=== PATIENT | female | born 1990 | race Two or more races ===

== ENCOUNTER 2018-10-27 20:06 | Emergency (ER) | payer MEDICAID ==
[~2018-10-27] VITALS: Ht 152.4 cm; Wt 59.0 kg
[2018-10-27] MEDS ORDERED: NKM (20:38)
[2018-10-27 20:40] VITALS: BP 116/77
--- NOTE | 2018-10-27 20:40 | NUR ---
ED Nurse Note: pt came to ed c/o abd pain 05/24 accompanied with diarrhea 6x today per pt. pt denies vomiting
--- NOTE | 2018-10-27 21:19 | Emergency Room Report ---
History of Present Illness General Chief Complaint: Abdominal Pain Source: Patient Present Illness HPI Is a 28-year-old female with no past medical history. She presents with chief complaint of abdominal pain. Onset for last 2 day. Pain is sharp in nature. Localized to the mid right quadrant area. [place] nauseous but no vomiting. Has diarrhea. Today she has a rash on the left side and around her breast area. Not itching. Not painful. Denies any fever chills but did not take anything for this. No urinary complaint. Allergies: Coded Allergies: No Known Allergies (Unverified , 10/27/18) Patient History Past Medical History: see triage record, old chart reviewed Past Surgical History: none Pertinent Family History: none Social History: Denies: smoking Last Menstrual Period: february 2001 Now: No Immunizations: other Reviewed Nursing Documentation: PMH: Agreed; PSxH: Agreed Nursing Documentation-PMH Past Medical History: No Stated History Review of Systems Eye: Denies: eye pain, blurred vision ENT: Denies: ear pain, nose congestion, throat swelling Respiratory: Denies: cough, shortness of breath Cardiovascular: Denies: chest pain, palpitations Gastrointestinal: Reports: abdominal pain, nausea; Denies: diarrhea, vomiting Musculoskeletal: Denies: back pain, joint pain Skin: Reports: rash Neurological: Denies: headache, numbness Endocrine: Denies: increased thirst, increased urine Hematologic/Lymphatic: Denies: easy bruising All Other Systems: negative except mentioned in HPI Physical Exam Vital Signs Date Time Temp Pulse Resp B/P (MAP) Pulse Ox O2 Delivery O2 Flow Rate FiO2 10/27/18 20:34 98.1 84 16 116/77 98 Room Air vitals normal Sp02 EP Interpretation: reviewed, normal General Appearance: well appearing, no apparent distress, alert Head: normocephalic, atraumatic Eyes: bilateral eye PERRL, bilateral eye EOMI ENT: hearing grossly normal, normal pharynx Neck: full range of motion, supple, no meningismus Respiratory: chest non-tender, lungs clear, normal breath sounds Cardiovascular #1: regular rate, rhythm, no murmur Gastrointestinal: normal bowel sounds, no mass, no organomegaly, no bruit, non- distended, tenderness - Right epigastric and mid right quadrant Musculoskeletal: back normal, gait/station normal, normal range of motion Psychiatric: mood/affect normal Skin: warm/dry, rash - 2-3 cm papular rash to the left upper quadrant/flank area. She has small 1 cm macular rash underneath both breasts. Medical Decision Making Diagnostic Impression: Primary Impression: Cholelithiasis Qualified Codes: K80.20 - Calculus of gallbladder without cholecystitis without obstruction Additional Impressions: Tinea corporis UTI (urinary tract infection) Qualified Codes: N30.00 - Acute cystitis without hematuria ER Course History with abdominal pain. This is secondary to gallbladder. No evidence of cholecystitis or obstruction. Patient felt better now. We'll discharge home. CT/MRI/US Diagnostic Results CT/MRI/US Diagnostic Results : Imaging Test Ordered: CT abdomen and pelvis Impression read by radiologist. Gallstone. Appendix normal. Last Vital Signs Date Time Temp Pulse Resp B/P (MAP) Pulse Ox O2 Delivery O2 Flow Rate FiO2 10/27/18 20:34 98.1 84 16 116/77 98 Room Air Status: improved Disposition: HOME, SELF-CARE Condition: Stable Scripts Ibuprofen* (MOTRIN*) 600 Mg Tablet 600 MG ORAL THREE TIMES A DAY, #30 TAB 0 Refills Prov: Selvin Cortes MD 10/27/18 Hydrocodone/Acetaminophen 5-325* (HYDROCODONE/ACETAMINOPHEN 5-325*) 1 Each Tablet 1 TAB ORAL Q6H PRN for For Pain, #10 TAB 0 Refills Prov: Selvin Cortes MD 10/27/18 Trimethoprim/Sulfamethoxazole 160/800* (BACTRIM DS TABLET*) 1 Each Tablet 1 TAB ORAL Q12H, #14 TAB 0 Refills Prov: Selvin Cortes MD 10/27/18 Additional Instructions: Follow-up with your doctor in 7 days. Return if worse. Selvin Cortes MD Oct 27, 2018 21:19
[2018-10-27] MEDS ORDERED: Ketorolac 30mg Inj IV ONE (21:30)
[2018-10-27 21:48] LABS: APPEARANCE,URINE SLIGHTLY CLOUDY; BILIRUBIN, URINE NEGATIVE (NEGATIVE); COLOR,URINE PALE YELLOW; GLUCOSE, URINE (UA) NEGATIVE (NEGATIVE); KETONES,URINE NEGATIVE (NEGATIVE); LEUKOCYTE ESTERASE ,URINE 3+ (NEGATIVE); NITRITE,URINE NEGATIVE (NEGATIVE); PH,URINE 6.5 (4.5-8.0); PROTEIN,URINE NEGATIVE (NEGATIVE); UROBILINOGEN,URINE NORMAL MG/DL (0.0-1.0)
[2018-10-27 21:51] LABS: BASOPHILS % (AUTO) 0.9 % (0.0-2.0); EOSINOPHILS % (AUTO) 2.4 % (0.0-3.0); HEMATOCRIT 40.6 % (37.0-47.0); HEMOGLOBIN 13.4 G/DL (12.0-16.0); LYMPHOCYTES % (AUTO) 31.8 % (20.0-45.0); MEAN CORPUSCULAR VOLUME 88 FL (80-99); MONOCYTES % (AUTO) 10.6 % (1.0-10.0); NEUTROPHILS % (AUTO) 54.4 % (45.0-75.0); PLATELET COUNT 328 K/UL (150-450); RED BLOOD COUNT 4.62 M/UL (4.20-5.40); WHITE BLOOD COUNT 8.6 K/UL (4.8-10.8)
[2018-10-27 21:59] LABS: ANION GAP 4 mmol/L (5-15); BLOOD UREA NITROGEN 11 mg/dL (7-18); CALCIUM 8.9 MG/DL (8.5-10.1); CARBON DIOXIDE 29 MMOL/L (21-32); CHLORIDE 105 MMOL/L (98-107); CREATININE 0.6 MG/DL (0.55-1.30); POTASSIUM 3.5 MMOL/L (3.5-5.1); SODIUM 138 MMOL/L (136-145)
[2018-10-27 22:04] LABS: ALANINE AMINOTRANSFERASE 27 U/L (12-78); ALBUMIN 3.5 G/DL (3.4-5.0); ALBUMIN/GLOBULIN RATIO 0.9 (1.0-2.7); ALKALINE PHOSPHATASE 66 U/L (46-116); ASPARTATE AMINO TRANSFERASE 27 U/L (15-37); BILIRUBIN,TOTAL 0.2 MG/DL (0.2-1.0)
--- NOTE | 2018-10-27 22:52 | Diagnostic Imaging Report ---
EXAM: CT Abdomen and Pelvis Without Intravenous Contrast CLINICAL HISTORY: ABD PAIN TECHNIQUE: Axial computed tomography images of the abdomen and pelvis without intravenous contrast. CTDI is 14.36 mGy and DLP is 777.39 mGy-cm. One or more of the following dose reduction techniques were used: automated exposure control, adjustment of the mA and/or kV according to patient size, use of iterative reconstruction technique. COMPARISON: No relevant prior studies available. FINDINGS: No urolithiasis or hydronephrosis. No evidence for acute pancreatitis or other significant abnormality of the unenhanced solid viscera. Suspected ovarian follicles. No bowel obstruction. There are some mildly distended small bowel segments which may represent ileus and/or stasis. No perienteric inflammatory changes. The visualized appendix is unremarkable. No large calcified gallstones though suspect cholelithiasis. No infiltrate at lung bases. IMPRESSION: No acute process. No large calcified gallstones though suspect cholelithiasis Incidental findings, as discussed above.
[2018-10-27] MEDS ORDERED: IBUPROFEN600 MG ORAL (23:17)
[2018-10-27] MEDS ORDERED: BACTRIM DS TAB1 EAC1 ORAL (23:17)
[2018-10-27] MEDS ORDERED: HYDROCODON-ACE1 EA15 ORAL (23:17)
[2018-10-27 23:23] VITALS: BP 116/77
--- NOTE | 2018-10-27 23:24 | NUR ---
ER DISCHARGE NOTE: Patient is cleared to be discharged per ERMD, pt is aox4, on room air, with stable vital signs. pt was given dc and prescription instructions, pt was able to verbalize understanding, pt id band and iv site removed without complications. pt is able to ambulate with steady gait. pt took all belongings.
== END 2018-10-27 23:23 | disposition home or self-care (01) ==
LOC: EMR 21:12
DX: K80.20 Calculus of gallbladder without cholecystitis without obstruction (principal); B35.4 Tinea corporis; N39.0 Urinary tract infection, site not specified
CPT/HCPCS: 36415; 74176; 80053; 81003; 81025; 83690; 85025; 87086; 96374; 99284; J1885

== ENCOUNTER 2019-04-08 09:56 | Emergency (ER) | payer MEDICAID ==
[~2019-04-08] VITALS: Ht 160 cm; Wt 58.5 kg
[~2019-04-08 09:56] MED LIST: BACTRIM DS TAB1 EAC1 ORAL; HYDROCODON-ACE1 EA15 ORAL; IBUPROFEN600 MG ORAL; NKM
[2019-04-08 10:01] VITALS: BP 111/76
--- NOTE | 2019-04-08 10:10 | NUR ---
ED Nurse Note: Patient walked into ED c/o flu-like symptoms. patient reports she has been having productive coughs for about 1 week. patient c/o headache 02/21. patient's oral temp upon triage was 98.7F. patient is alert awake x4 ambulatory steady gait, breathing unlabored and even.
[2019-04-08] MEDS ORDERED: ALLERGY D-12 T1 EACH PO (10:21)
--- NOTE | 2019-04-08 10:21 | Emergency Room Report ---
History of Present Illness General Chief Complaint: Upper Respiratory Illness Source: Patient Present Illness HPI 28-year-old female history of breast patient presents with cough, congestion, subjective fever/chills x7 days, no known aggravating or alleviating factors, severity is mild, symptoms are constant, patient wants to know she can take anything that will cure this. Allergies: Coded Allergies: No Known Allergies (Unverified , 10/27/18) Patient History Past Medical History: see triage record Last Menstrual Period: 04/06/2019 Now: No : 1 Para: 1 Reviewed Nursing Documentation: PMH: Agreed; PSxH: Agreed Nursing Documentation-PMH Past Medical History: No Stated History Review of Systems All Other Systems: negative except mentioned in HPI Physical Exam Vital Signs Date Time Temp Pulse Resp B/P (MAP) Pulse Ox O2 Delivery O2 Flow Rate FiO2 04/08/19 10:01 98.8 94 18 111/76 (88) 94 Room Air Sp02 EP Interpretation: reviewed, normal General Appearance: well appearing, no apparent distress, alert Head: normocephalic, atraumatic Eyes: bilateral eye PERRL, bilateral eye EOMI ENT: uvula midline, moist mucus membranes, nasal congestion Neck: supple, thyroid normal, supple/symm/no masses Respiratory: lungs clear, no respiratory distress, no retraction, no accessory muscle use Cardiovascular #1: normal peripheral pulses, regular rate, rhythm, no edema, no gallop, no murmur Gastrointestinal: non tender, soft, no guarding, no rebound Musculoskeletal: normal inspection Neurologic: alert, oriented x3 Psychiatric: mood/affect normal Skin: no rash, warm/dry Medical Decision Making Diagnostic Impression: Primary Impression: Upper respiratory infection Qualified Codes: J06.9 - Acute upper respiratory infection, unspecified ER Course 28-year-old female presents with URI like symptoms x1 week will obtain x-ray to evaluate for pneumonia. Differential includes viral syndrome, URI, influenza Chest x-ray negative symptomatic care disposition home with return precautions Chest X-Ray Diagnostic Results Chest X-Ray Diagnostic Results : Chest X-Ray Ordered: Yes # of Views/Limited/Complete: 1 View Indication: Other - Cough Interpretation: no consolidation, no effusion, no pneumothorax, no acute cardiopulmonary disease Impression: No acute disease Electronically Signed by: Willian Flaherty MD Last Vital Signs Date Time Temp Pulse Resp B/P (MAP) Pulse Ox O2 Delivery O2 Flow Rate FiO2 04/08/19 10:01 98.8 94 18 111/76 (88) 94 Room Air Disposition: HOME, SELF-CARE Condition: Stable Scripts Cetirizine Hcl/Pseudoephedrine (ALLERGY D-12 TABLET) 1 Each Tab.er.12h 1 EACH PO Q12HR, #20 TAB Prov: Willian Flaherty MD 04/08/19 Referrals: [facility]dev Hern[facility]dez [facility] Departure Forms: Return to Work Return to Work Date: Apr 11, 2019 Patient Instructions: Upper Respiratory Infection, Adult Additional Instructions: The patient was provided with discharge instructions, notified to follow-up with a primary care doctor and or specialist in the next 24-48 hours, and to return to the ED if they have worsening of their symptoms. Please note that this report is being documented using DRAGON technology. This can lead to erroneous entry secondary to incorrect interpretation by the dictating instrument. Willian Flaherty MD Apr 08, 2019 10:21
[2019-04-08 10:35] VITALS: BP 111/76
--- NOTE | 2019-04-08 10:35 | NUR ---
ER DISCHARGE NOTE: Patient is cleared to be discharged per ERMD DR AVERY, pt is aox4, on room air, with stable vital signs. pt was given dc and prescription instructions, pt was able to verbalize understanding, pt id band removed without complications. pt is able to ambulate with steady gait. pt took all belongings.
--- NOTE | 2019-04-08 11:47 | Diagnostic Imaging Report ---
EXAM: XR Chest, 1 View CLINICAL HISTORY: COUGH TECHNIQUE: Frontal view of the chest. COMPARISON: None FINDINGS: Hardware: None. Lungs/pleura: Hazy opacities in the lower lungs is likely secondary to overlying soft tissue density. No focal consolidation. No pleural effusion or pneumothorax. Heart/mediastinum: Normal. No cardiomegaly. Soft tissues: Unremarkable. Bones: No acute fracture. Upper abdomen: Normal. IMPRESSION: No acute disease identified.
== END 2019-04-08 10:35 | disposition home or self-care (01) ==
LOC: EMR 10:00
DX: J06.9 Acute upper respiratory infection, unspecified (principal)
CPT/HCPCS: 71045; 81025; 99283

== ENCOUNTER 2020-09-12 00:03 | Emergency (ER) | payer MEDICAID ==
[~2020-09-12] VITALS: Ht 165.1 cm; Wt 63.5 kg
[~2020-09-12 00:03] MED LIST changes: +ALLERGY D-12 T1 EACH PO
[2020-09-12] MEDS ORDERED: Ketorolac 30mg Inj IV ONE (00:15)
--- NOTE | 2020-09-12 00:20 | NUR ---
ED Nurse Note: Pt comes into ED unaccompanied, c/o 10 left flank pain x 2 weeks. Pt states LMP 2 weeks ago.
--- NOTE | 2020-09-12 00:25 | NUR ---
ED Nurse Note: Blood and UA collected at bedside. IV inserted without issues into left AC Addendum: 09/12/20 at 0047 by FRANDY ED Nurse Note: Blood and UA collected at bedside and sent to lab. IV inserted without issues into left AC
--- NOTE | 2020-09-12 00:27 | Emergency Room Report ---
History of Present Illness General Chief Complaint: Abdominal Pain Source: Patient Present Illness HPI 30-year-old female with history of cholelithiasis here with left flank pain. Patient says that she has felt worsening left flank pain for the past 2 weeks. Has been taking Tylenol intermittently with only mild relief. Has never had this kind of pain before. Has vomited once several days ago nonbilious no nbloody. Pain is located in left lower quadrant and left flank. Does not radiate. No fevers, chills, chest pain, palpitation, shortness of breath, abdominal pain aside from previously mentioned, diarrhea, dysuria, hematuria. No surgical history. No drugs or alcohol. Allergies: Coded Allergies: No Known Allergies (Unverified , 10/27/18) COVID-19 Screening Contact w/high risk pt: No Experienced COVID-19 symptoms?: No COVID-19 Testing performed HOME WORKER: No COVID-19 Screening: Negative COVID-19 COVID-19 Testing Source: Mobile Patient History Now: No Nursing Documentation-[facility] Past Medical History: No Stated History Review of Systems All Other Systems: negative except mentioned in HPI Physical Exam Vital Signs Date Time Temp Pulse Resp B/P (MAP) Pulse Ox O2 Delivery O2 Flow Rate FiO2 09/12/20 00:08 98.4 92 20 127/60 (82) 98 Room Air Sp02 EP Interpretation: reviewed, normal General Appearance: no apparent distress, alert, non-toxic Head: normocephalic, atraumatic Eyes: bilateral eye normal inspection, bilateral eye PERRL ENT: hearing grossly normal, normal pharynx, no angioedema, normal voice Neck: full range of motion, supple/symm/no masses Respiratory: chest non-tender, lungs clear, normal breath sounds, speaking full sentences Cardiovascular #1: regular rate, rhythm, no edema Cardiovascular #2: 2+ carotid (R), 2+ carotid (L), 2+ radial (R), 2+ radial (L), 2+ dorsalis pedis (R), 2+ dorsalis pedis (L) Gastrointestinal: normal bowel sounds, non tender, soft, non-distended, no guarding, no rebound, other - Mild left CVA tenderness on palpation. Mild left lower quadrant tenderness on palpation. No right lower quadrant tenderness. Negative Rovsing sign. Negative Hairston sign. Abdomen nondistended. No rebound or guarding Rectal: deferred Genitourinary: normal inspection Musculoskeletal: back normal, normal range of motion, gait/station normal, non- tender Neurologic: alert, motor strength/tone normal, oriented x3, sensory intact, responsive, speech normal Psychiatric: judgement/insight normal, memory normal, mood/affect normal, no suicidal/homicidal ideation Lymphatic: no adenopathy Medical Decision Making Diagnostic Impression: Primary Impression: UTI (urinary tract infection) ER Course Laboratory Tests Test 09/12/20 00:30 White Blood Count 15.4 K/UL (4.8-10.8) H Red Blood Count 4.57 M/UL (4.20-5.40) Hemoglobin 14.0 G/DL (12.0-16.0) Hematocrit 40.1 % (37.0-47.0) Mean Corpuscular Volume 88 FL (80-99) Mean Corpuscular Hemoglobin 30.6 PG (27.0-31.0) Mean Corpuscular Hemoglobin Concent 34.8 G/DL (32.0-36.0) Red Cell Distribution Width 13.3 % (11.6-14.8) Platelet Count 355 K/UL (150-450) Mean Platelet Volume 5.3 FL (6.5-10.1) L Neutrophils (%) (Auto) 62.4 % (45.0-75.0) Lymphocytes (%) (Auto) 28.6 % (20.0-45.0) Monocytes (%) (Auto) 6.6 % (1.0-10.0) Eosinophils (%) (Auto) 1.5 % (0.0-3.0) Basophils (%) (Auto) 0.9 % (0.0-2.0) Urine Color Pale yellow Urine Appearance Slightly cloudy Urine pH 6 (4.5-8.0) Urine Specific [place] 1.020 (1.005-1.035) Urine Protein Negative (NEGATIVE) Urine Glucose (UA) Negative (NEGATIVE) Urine Ketones Negative (NEGATIVE) Urine Blood 1+ (NEGATIVE) H Urine Nitrite Negative (NEGATIVE) Urine Bilirubin Negative (NEGATIVE) Urine Urobilinogen Normal MG/DL (0.0-1.0) Urine Leukocyte Esterase 3+ (NEGATIVE) H Urine RBC 0-2 /HPF (0 - 2) Urine WBC 10-15 /HPF (0 - 2) H Urine Squamous Epithelial Cells Moderate /LPF (NONE/OCC) H Urine Bacteria Moderate /HPF (NONE) H Urine HCG, Qualitative Negative (NEGATIVE) Sodium Level 138 MMOL/L (136-145) Potassium Level 3.6 MMOL/L (3.5-5.1) Chloride Level 103 MMOL/L (98-107) Carbon Dioxide Level 25 MMOL/L (21-32) Anion Gap 10 mmol/L (5-15) Blood Urea Nitrogen 8 mg/dL (7-18) Creatinine 0.6 MG/DL (0.55-1.30) Estimated Glomerular Filtration Rate > 60 mL/min (>60) Glucose Level 92 MG/DL (74-106) Calcium Level 9.4 MG/DL (8.5-10.1) Total Bilirubin 0.2 MG/DL (0.2-1.0) Aspartate Amino Transferase (AST) 10 U/L (15-37) L Alanine Aminotransferase (ALT) 16 U/L (12-78) Alkaline Phosphatase 66 U/L (46-116) Total Protein 8.2 G/DL (6.4-8.2) Albumin 3.6 G/DL (3.4-5.0) Globulin 4.6 g/dL Albumin/Globulin Ratio 0.8 (1.0-2.7) L Lipase 253 U/L (73-393) 30-year-old female here with left flank pain for 2 weeks. Patient had a leukocytosis of 15,000 and evidence of urinary tract infection. Other labs largely unremarkable. Patient was given 1 dose of Toradol and said that she felt 100% improved. Was requesting to leave without any imaging. She was given a prescription for ciprofloxacin to treat for possible pyelonephritis told to return to the emergency department with any worsening symptoms. She expressed understanding and was discharged. ddx: Hernia, bladder or kidney stones, diverticulitis, enteritis, appendicitis, genital pathology, pyelonephritis Last Vital Signs Date Time Temp Pulse Resp B/P (MAP) Pulse Ox O2 Delivery O2 Flow Rate FiO2 09/12/20 00:08 98.4 92 20 127/60 (82) 98 Room Air Scripts Ciprofloxacin Hcl* (CIPROFLOXACIN HCL*) 500 Mg Tablet 500 MG ORAL Q12H, #14 TAB 0 Refills Prov: Ervin Enrique M.D. 09/12/20 Ibuprofen* (MOTRIN*) 600 Mg Tablet 600 MG ORAL Q6H PRN for FOR PAIN, #20 TAB 0 Refills Prov: Ervin Enrique M.D. 09/12/20 Ervin Enrique M.D. Sep 12, 2020 00:27
[2020-09-12] MEDS ORDERED: Omnipaque-300 100ml vial INJ PRN (00:30)
[2020-09-12 00:46] LABS: BASOPHILS % (AUTO) 0.9 % (0.0-2.0); EOSINOPHILS % (AUTO) 1.5 % (0.0-3.0); HEMATOCRIT 40.1 % (37.0-47.0); LYMPHOCYTES % (AUTO) 28.6 % (20.0-45.0); MEAN CORPUSCULAR VOLUME 88 FL (80-99); MONOCYTES % (AUTO) 6.6 % (1.0-10.0); NEUTROPHILS % (AUTO) 62.4 % (45.0-75.0); PLATELET COUNT 355 K/UL (150-450); RED BLOOD COUNT 4.57 M/UL (4.20-5.40); RED CELL DISTRIBUTION WIDTH 13.3 % (11.6-14.8); WHITE BLOOD COUNT 15.4 K/UL (4.8-10.8)
[2020-09-12 00:47] LABS: BILIRUBIN, URINE NEGATIVE (NEGATIVE); COLOR,URINE PALE YELLOW; GLUCOSE, URINE (UA) NEGATIVE (NEGATIVE); KETONES,URINE NEGATIVE (NEGATIVE); LEUKOCYTE ESTERASE ,URINE 3+ (NEGATIVE); NITRITE,URINE NEGATIVE (NEGATIVE); PH,URINE 6 (4.5-8.0); PROTEIN,URINE NEGATIVE (NEGATIVE); UROBILINOGEN,URINE NORMAL MG/DL (0.0-1.0)
[2020-09-12 00:51] LABS: APPEARANCE,URINE SLIGHTLY CLOUDY
[2020-09-12 00:52] LABS: ANION GAP 10 mmol/L (5-15); BLOOD UREA NITROGEN 8 mg/dL (7-18); CALCIUM 9.4 MG/DL (8.5-10.1); CARBON DIOXIDE 25 MMOL/L (21-32); CHLORIDE 103 MMOL/L (98-107); CREATININE 0.6 MG/DL (0.55-1.30); POTASSIUM 3.6 MMOL/L (3.5-5.1); SODIUM 138 MMOL/L (136-145)
[2020-09-12 00:57] LABS: ALANINE AMINOTRANSFERASE 16 U/L (12-78); ALBUMIN 3.6 G/DL (3.4-5.0); ALBUMIN/GLOBULIN RATIO 0.8 (1.0-2.7); ALKALINE PHOSPHATASE 66 U/L (46-116); ASPARTATE AMINO TRANSFERASE 10 U/L (15-37); BILIRUBIN,TOTAL 0.2 MG/DL (0.2-1.0)
--- NOTE | 2020-09-12 00:58 | NUR ---
ED Nurse Note: Pt states she has minimal pain at 2/10 and is ready to go home. MD notified.
[2020-09-12] MEDS ORDERED: IBUPROFEN600 M1 ORAL (01:01)
[2020-09-12] MEDS ORDERED: CEPHALEXIN500 MG ORAL (01:01)
[2020-09-12] MEDS ORDERED: CIPROFLOXACIN500 M2 ORAL (01:06)
--- NOTE | 2020-09-12 01:07 | NUR ---
ER DISCHARGE NOTE: Patient is cleared to be discharged per ER MD, pt is aox4, on room air, with stable vital signs. pt states she is no longer in pain at this time. pt was given dc and prescription instructions, pt was able to verbalize understanding, pt id band and iv site removed without complications. pt is able to ambulate with steady gait. pt took all belongings.
[2020-09-12 01:12] VITALS: BP 113/82
== END 2020-09-12 01:08 | disposition home or self-care (01) ==
LOC: EMR 00:30
DX: N39.0 Urinary tract infection, site not specified (principal)
CPT/HCPCS: 36415; 80053; 81003; 81025; 83690; 85025; 87086; 96361; 96374; J1885; Z7502; 99284